=== PATIENT | female | born 2005 | race Caucasian/White ===

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

== ENCOUNTER 2023-02-06 20:37 | Emergency (ER) | payer OTHER ==
[~2023-02-06] VITALS: Ht 165.1 cm; Wt 77.1 kg
[~2023-02-06 20:37] MED LIST: ALBU90OI INH; ALEVAZOL56.7 G1 TOP; Flagyl500 MG PO
[2023-02-06 20:53] VITALS: BP 140/70
== END 2023-02-06 21:41 | disposition home or self-care (01) ==
LOC: ER 20:37
DX: S63.501A Unspecified sprain of right wrist, initial encounter (principal); M77.8 Other enthesopathies, not elsewhere classified; X50.1XXA Overexertion from prolonged static or awkward postures, initial encounter; Y93.72 Activity, wrestling; Z88.0 Allergy status to penicillin; Z79.899 Other long term (current) drug therapy
CPT/HCPCS: 73130